=== PATIENT | male | born 1970 | race Caucasian/White ===

== ENCOUNTER → 2017-09-08 12:41 | Outpatient (CLI) | payer MEDICARE, SELFPAY | PROVIDERS: Family Provider Family Medicine; PCP Family Medicine; Visit Provider Family Medicine | DX: R19.7 Diarrhea, unspecified (principal) | CPT/HCPCS: 87177; 87209; 87493; 87506 ==

== ENCOUNTER → 2017-09-09 11:07 | Outpatient (CLI) | payer MEDICARE, SELFPAY ==
--- NOTE | 2017-09-09 11:30 | MRI_ITS ---
STUDY: MRI ABDOMEN WITH CONTRAST REASON FOR EXAM: Male, 47 years old. Liver lesion TECHNIQUE: Standardized fat and water weighted pulse sequences were obtained in all 3 orthogonal planes post contrast administration. 10 ml of Gadavist contrast material was administered intravenously. COMPARISON: CT dated 08/30/2017 FINDINGS: This study is limited by patient motion. The visualized lung bases are unremarkable. The visualized portions of the heart are within normal limits. There is diffuse fatty infiltration of the liver with a 2.2 x 2.0 cm region of focal fatty sparing in segment 5 of the liver adjacent to the gallbladder fossa. This corresponds to the abnormality on the recent CT. The liver is otherwise unremarkable. Normal gallbladder and extrahepatic biliary system. Normal spleen. Normal pancreas. Normal bilateral adrenal glands. Normal right kidney. Normal left kidney. The visualized bowel is unremarkable. Normal abdominal aorta. Normal inferior vena cava. MRI/MRI Abd WITH and W/O Contrast IMPRESSION: Diffuse fatty infiltration of the liver with a 2.2 x 2.0 cm region of focal fatty sparing adjacent to the gallbladder fossa. This accounts for the findings on the recent CT. No additional hepatic lesions. Electronically Signed: Peter Fischer, at 17:26 EDT Tel , Service support ,
== END ==
PROVIDERS: Family Provider Family Medicine; PCP Family Medicine; Visit Provider Family Medicine
DX: K76.9 Liver disease, unspecified (principal)
CPT/HCPCS: 74183; A9585

== ENCOUNTER → 2017-09-10 14:58 | Outpatient (CLI) | payer MEDICARE, SELFPAY ==
[2017-09-12 16:10] LABS: Endomysial Antibody IgA Negative (Negative)
[2017-09-13 11:20] LABS: Immunoglobulin A 234 mg/dL (90-386); t-Transglutaminase IgA <2 U/mL (0-3)
== END ==
PROVIDERS: Family Provider Family Medicine; PCP Family Medicine; Visit Provider Internal Medicine Gastroenterology
DX: R10.9 Unspecified abdominal pain (principal)
CPT/HCPCS: 36415; 82784; 83516; 86140; 86255

== ENCOUNTER → 2017-11-27 15:39 | Outpatient (CLI) | payer MEDICARE, SELFPAY ==
--- NOTE | 2017-11-27 15:45 | RAD_ITS ---
STUDY: X-RAY - LUMBAR SPINE REASON FOR EXAM: Male, 47 years old. Pain for 5 weeks after lifting a family member who fell. TECHNIQUE: 5 view(s) of the lumbar spine were obtained. COMPARISON: September 15, 2010. FINDINGS: Normal lumbar lordosis. There is no substantial scoliosis. Normal vertebral bodies and endplates. Normal disc space heights. There is minimal anterolisthesis of L5 on S1 which appears unchanged from prior study. The remainder the alignment is preserved. There is no evidence of acute fracture or loss of vertebral axial height. There are pars defects bilaterally at L5. The soft tissue structures are unremarkable. RAD/L/S Spine Min 4 Views IMPRESSION: Stable anterolisthesis of L5 on S1 with bilateral pars defects. There is no major interval change. Electronically Signed: Chai Tavera DO at 16:06 EDT Tel [phone], Service support ,
== END ==
LOC: MTRAD 15:43
PROVIDERS: Family Provider Family Medicine; PCP Family Medicine; Visit Provider Family Medicine
DX: S39.012A Strain of muscle, fascia and tendon of lower back, initial encounter (principal)
CPT/HCPCS: 72110

== ENCOUNTER → 2017-12-12 09:32 | Outpatient (CLI) | payer MEDICARE, SELFPAY ==
--- NOTE | 2017-12-12 09:38 | MRI_ITS ---
STUDY: MRI LUMBAR SPINE WITHOUT CONTRAST REASON FOR EXAM: Male, 47 years old. Radiculopathy. Pain into legs bilaterally. TECHNIQUE: Standardized fat and water weighted pulse sequences were obtained in the sagittal and axial planes. COMPARISON: Lumbar spine radiographs 11/27/2017. FINDINGS: T12-L1: (Sagittal only). Normal endplates. Normal disc height, hydration and morphology. Normal central canal and bilateral intervertebral neural foramina. Normal lumbar lordosis. There is no substantial scoliosis. Normal conus medullaris that terminates at the T12-L1 disc level. L1-2: Normal endplates. Minimal disc space height narrowing with mild loss of disc hydration. Small posterior bulging disc. Normal central canal and bilateral lateral recesses. Normal facet joints. Normal bilateral intervertebral neural foramina. L2-3: Normal endplates. Normal disc height, hydration and morphology. Normal bilateral facet joints. Normal central canal and bilateral lateral recesses. Normal bilateral intervertebral neural foramina. L3-4: Normal endplates. Normal disc height, hydration and morphology. Normal bilateral facet joints. Normal central canal and bilateral lateral recesses. Normal bilateral intervertebral neural foramina. L4-5: Normal endplates. Normal disc height, hydration and morphology. Normal bilateral facet joints. Normal central canal and bilateral lateral recesses. Normal bilateral intervertebral neural foramina. L5-S1: Normal endplates. Mild disc space height narrowing with marked loss of disc hydration. Small posterior midline disc protrusion but no deformity of the thecal sac due to presence of ventral epidural fat. Normal central canal and bilateral lateral recesses. Bilateral pars defects with minimal anterolisthesis of L5 on S1. Normal facet joints. Normal bilateral intervertebral neural foramina. Normal visualized sacral ala. Normal visualized paraspinous soft tissue structures. MRI/Spine Lumbar (Routine) IMPRESSION: 1. Bilateral L5 pars defects with minimal anterolisthesis of L5 on S1. 2. L5-S1 posterior midline disc protrusion but no deformity of the thecal sac due to presence of ventral epidural fat. 3. Small L1-L2 posterior bulging disc. 4. No MRI evidence of lumbar extruded disc fragment, spinal stenosis or nerve root displacement. Electronically Signed: Steven Mandel MD at 10:38 EDT , Service support ,
== END ==
LOC: MRI 09:33
PROVIDERS: Family Provider Family Medicine; PCP Family Medicine; Visit Provider Family Medicine
DX: M54.16 Radiculopathy, lumbar region (principal)
CPT/HCPCS: 72148

== ENCOUNTER 2018-01-01 15:00 | Outpatient (RCR) | payer MEDICARE, SELFPAY ==
--- NOTE | 2017-12-24 16:46 | HP.PTEVAL ---
Patient's Visit Information NEIL PHILLIP is a 47 year old M referred to Physical Therapy by Richard Cortes with a diagnosis of Back Pain. Date of Evaluation: 12/24/17 Physical Therapist: Mayte Jackson - Visit Plan Frequency: 2x /Week Duration: 4 Weeks Plan: Focus on core s/s and pain management- assess throughout session start slow check tolerance on land after 5-10 min. - Subjective Subjective: Patient reports back pain for abour 2-3 months- was taking care of grandmother- had to pick her up off the floor- hurt a little bit- had to do it again and has has pain since then. Patient reports the pain is about the same. Pain is located along the low back goes up to the thoracic spine- and every once in awhile it goes down left and right leg to the ankle. Only happens rarely when he moves wrong. Eases: recliner all the way back- pool noodle behind the back, legs elevated, muscle relaxer and Tylenol and can be pain free for about an hour. Considerable better pain anderson with a Vicoden and Flexeril. Feels like he has plateaud. Getting up and moving helps. Aggravating s/s: lifting anything with any kind of twisting. Sleep: disturbed- hard to get comfortable- but once he is asleep its better. Has N/T in his feet but doesn't know if its DM or the back. Describes the pain as shocking pains. 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 X-rays, CT Scan and MRI. No injections in his spine- has never seen a chiro/massage therapist. Diagnosed with IBS so no changes in bowel/bladder since then. Work: not currently working. Before back pain he was able to get up and do things (walking). PMHx: DM, PTSD, GERD, IBS, Asthma, Sarcodosis. Meds: will bring a list next time. - Objective Posture: FH, RS, Increased kyphosis- very guarded- stiff with no rotation- will use feet to turn to sides. Gait: antalgic- poor trunk rotation and arm swing- very guarded-. HR/TR: able with UE A. Balance: unable to SLS will weight shift (doesn't trust his legs to not give out). Sensation: grossly intact. Reflexes: WNL. ROM: lumbar: flexion-hands to mid bran with pain, extn: decreased by 75%, rotation: WFL but slow, SB: WFL- no pain with rotation/SB. Hip/ankle/knee: WNL. Strength: Left: ankle: 4/5, Knee: 4+/5, Hip: 4/5 Core: poor Right ankle-4+/5, knee: 5/5, hip: 4+/5. Special Test: Slump: negative, Dural signs: positive bilateral, SLR: positive bilateral. unable to obtain extension positioning on table due to pain - Goals Goal 1:: Patient will be I with HEP Goal Time Frame: 4-6 Weeks Goal 2:: Patient will ambulate >300 feet with a normalized gait pattern Goal Time Frame: 4-6 Weeks Goal 3:: Patient will maintain proper posture t/o tx session to demo increased core s/s Goal Time Frame: 4-6 Weeks Goal 4:: Patient will report 0/10 pain for 1 week Goal Time Frame: 4-6 Weeks - Rehabilitation Potential Physical Therapy Diagnosis: Patient presents with hypomobility- he has decreased ROM, strength and muscular endurance leading to poor posture and increased pain with ADL's. Rehabilitation Potential: Fair - Anticipated Interventions Patient/Client Instruction: Educate patient on: Benefits of Fitness Program Therapeutic Exercise to Include: Strength training, Endurance training, Balance training, Agility training, Body mechanics, Postural training, Flexibilty training, Gait and locomotor training, In an aquatic setting, Dynamic Lumbar Stabilization For the Purpose of:: To improve muscle performance and motor function Thank you for the opportunity to evaluate your patient. For Medicare and Medicare HMO plans, please review the plan of care and approve it. It will need to be FAXED BACK to us at [phone] for Medicare purposes. Please let me know if there are questions or concerns regarding this plan of care. Physician Signature: Date:
--- NOTE | 2018-02-16 16:31 | HP.PT.NRP ---
HP - Discharge Summary (1) - Patient Information NEIL PHILLIP was seen in my office for initial evaluation on 12/24/17. The following Plan of Care was established for this patient: Initial Frequency: 2x /Week Initial Duration: 4 Weeks - Anticipated Interventions Patient/Client Instruction: Educate patient on: Benefits of Fitness Program Therapeutic Exercise to Include: Strength training, Endurance training, Balance training, Agility training, Body mechanics, Postural training, Flexibilty training, Gait and locomotor training, In an aquatic setting, Dynamic Lumbar Stabilization For the Purpose of:: To improve muscle performance and motor function This patient was last seen in our office . Pertinent comments regarding their Physical therapy will appear below: Patient has not attended physical therapy in over 4 weeks and is appropriate for d/c. At this point I will be discontinuing this patient from physical therapy. I would be happy to see this patient again in the future if found appropriate by the physician. Thank you! Mayte Jackson
== END 2018-01-01 19:00 | disposition home or self-care (01) ==
LOC: PT 15:00
PROVIDERS: Family Provider Family Medicine; PCP Family Medicine; Visit Provider Family Medicine
DX: M54.9 Dorsalgia, unspecified (principal)
CPT/HCPCS: 97113; 97162

== ENCOUNTER 2018-03-04 19:09 | Emergency (ER) | payer MEDICARE, SELFPAY ==
[2018-03-04 19:10] VITALS: BP 126/80; PULSE 140; RESP 20; TEMP 36.4; O2SAT 98; BMI 33.9
[2018-03-04 19:52] LABS: Absolute Neutrophil Count 4.7 X10^3/uL (2.0-7.7); Basophil# 0.02 X10^3/uL; Basophil% 0.3 % (0-1); Eosinophil# 0.13 X10^3/uL; Eosinophils% 1.8 % (0-5); Hematocrit 42.1 % (40-54); Lymphocyte % 26.1 % (19-41); Mean Corp Hgb Conc 35.6 g/gl (32-36); Mean Corpuscular Hgb 29.5 pg (27.0-32.0); Mean Corpuscular Volume 82.9 fL (80-94); Mean Platelet Vol. 8.9 fl (6.2-12.0); Monocyte# 0.53 X10^3/uL; Monocyte% 7.3 % (0-10); Neutrophil % 64.4 % (47-70); Platelet Count 274 K/mm3 (150-450); RBC Distribution Width CV 12.6 % (11.6-14.6); RBC Distribution Width SD 37.7 fl (35.1-43.9); Red Blood Count 5.08 M/mm3 (4.6-6.2); White Blood Count 7.3 K/mm3 (4.4-11.0)
[2018-03-04 19:54] LABS: POSITIVE COUNT NO; POSITIVE DIFFERENTIAL NO; POSITIVE MORPHOLOGY NO
[2018-03-04 20:16] LABS: Anion Gap 8 (5-15); BUN 13 mg/dL (7-18); BUN/Creat Ratio 10.5 RATIO (10-20); Calcium,Total 9.2 mg/dL (8.5-10.1); Chloride 104 mmol/L (98-107); Creatinine, Serum 1.24 mg/dL (0.70-1.30); EST Glomerular Filtration Rate 67 mL/min (>60); Est Glom Filt Rate - Afr Amer 81 mL/min (>60); Glucose 120 mg/dL (74-106); Potassium 4.1 mmol/L (3.5-5.1); Sodium Level 136 mmol/L (136-145)
[2018-03-04] MEDS: Morphine 4 MG/ML Syringe IV (21:54)
[2018-03-04] MEDS: Metoclopramide 10 MG/2 ML Vial IV (21:54)
[2018-03-04] MEDS: 0.9% Normal Saline 1,000 ML 1000 ML IV (21:54)
[2018-03-04 21:55] VITALS: BP 146/94; PULSE 97; RESP 16
--- NOTE | 2018-03-04 22:10 | CT_ITS ---
STUDY: CT ABDOMEN AND PELVIS WITH CONTRAST REASON FOR EXAM: Male, 48 years old. Abdominal pain, nausea and vomiting. Patient also has diarrhea. RADIATION DOSAGE (If Supplied By Facility): CTDIvol = ( 23.72 ) mGy, DLP = ( 1449.16 ) mGycm TECHNIQUE: Transaxial images were obtained from the dome of the diaphragm to the symphysis pubis with oral contrast. 100 ml of Isovue 300 contrast was administered. Sagittal and coronal images were reconstructed. Individualized dose optimization techniques were used for this CT. COMPARISON: CT of the abdomen and pelvis dated August 30, 2017. FINDINGS: There is a curvilinear opacity in the right lower lobe that is similar to previous study and may represent a pulmonary fibrosis. Lung bases are otherwise clear. No pleural effusions are visualized. The visualized portions of the heart are within normal limits. There is decreased attenuation of the liver consistent with steatosis. Normal gallbladder and extrahepatic biliary system. Normal spleen. There is diffuse atrophy of the pancreas. Normal bilateral adrenal glands. Normal right kidney. Normal left kidney. Normal visualized stomach. There is no evidence for dilated bowel, ascites or pneumoperitoneum. Small bowel has a grossly normal appearance. Anterior contrast is visible within the colon. There is very little solid stool visible. The descending colon is less distended. The appendix is visualized and appears normal. Normal abdominal aorta. Normal inferior vena cava. Normal retroperitoneum. Normal urinary bladder. There are prostatic calcifications. There is a small umbilical hernia containing fat. There is spondylolysis of L5. There is mild anterolisthesis at L5-S1. The imaged thoracic and lumbar vertebral bodies have normal height and alignment. CT/Abdomen/Pelvis WITH Contrast IMPRESSION: 1. Hepatic steatosis. 2. No CT evidence of acute intra-abdominal disease. 3. Very little solid stool is consistent with history of diarrhea. Electronically Signed: Yessi Morrissey MD at 0:46 EDT , Service support ,
[2018-03-04 22:33] LABS: Lactic Acid 1.4 mmol/L (0.4-2.0)
[2018-03-04 23:17] LABS: AST(SGOT) 22 U/L (15-37); Alanine Aminotransfer ALT/SGPT 47 U/L (16-61); Albumin, Serum 3.9 g/dL (3.2-5.0); Alkaline Phosphatase 75 U/L (45-117); Globulin 3.5 g/dL (2.2-4.2); Lipase 66 U/L (73-393); Protein, Total 7.4 g/dL (6.4-8.2)
--- NOTE | 2018-03-04 23:59 | ED.VISSUMM ---
- ER Visit Summary Date of Service: 03/04/18 Chief Complaint: [Abdominal pain] History of Present Illness: The patient is a 48 M [presents the emergency department with complaint of abdominal pain that he has had for over 2 weeks. Patient states that he has nausea and vomiting and really cannot eat very much as he has early satiety. Patient has had minimal food intake in the last 4 days. He believes his lost weight but cannot tell me how much. Patient also having diarrhea and thinks he had about 10 episodes today. Stools are watery. He denies any blood in his stool. He denies any blood in his vomitus. He has had no fevers. He denies recent travel or antibiotic usage. Patient does have a history of GERD and was diagnosed with irritable bowel syndrome [address] Moore however as he states that he cannot afford his medication prescribed. Patient also has known history of hiatal hernia.] Physical Examination: [HEENT-PERRLA, EOMI. Cranial nerves II through XII grossly intact. TMs clear. Mucous membranes moist. No adenopathy. Cardiovascular-regular and tachycardic with a heart rate in the 140s. No murmurs auscultated. Lungs-clear to auscultation, chest wall stable without crepitus or subcu emphysema Abdomen-normoactive bowel sounds, soft. Patient has diffuse tenderness palpation over the epigastric region with some guarding. There is no rebound, rigidity, or perineal signs. Extremities-intact ?4, normal range of motion, normal pulses, atraumatic] Test Results: [CBC with differential obtained showed a white count 7.3, hemoglobin 15, hematocrit 42, platelets 274. Chemistries unremarkable. LFTs unremarkable. Lipase was 66. Troponin was less than 0.015. CT scan of the abdomen pelvis pending. Stool was ordered for enteric pathogens.] Emergency Department Course and Treatment: [Patient was given a liter normal same fluid bolus and was medicated with morphine and Reglan.] Care of patient turned over to evening physician awaiting CT results and final disposition that includes dictation thank Treatment Plan: [Pending CT results and final disposition] Disposition: [Pending] Impression: [Abdominal pain] This note was generated with [employer] software. It may contain incorrect words, spelling, and punctuation that were not noted in review of the chart prior to signing ED Disposition - Plan for ED Patient: Chief Complaint: Abd Pain Referrals: Richard Cortes MD [Primary Care Provider] -
--- NOTE | 2018-03-05 00:07 | ED.DEP ---
ED Disposition - Plan for ED Patient: Chief Complaint: Abd Pain Instructions: ED Abdominal Pain Unkn Cause Prescriptions: Metoclopramide [Reglan] 10 mg PO 4X/DAY PRN #20 tab PRN Reason: Headache Referrals: Richard Cortes MD [Primary Care Provider] - Additional Instructions: See Dr. Moore for follow up in 3-5 days
--- NOTE | 2018-03-05 02:29 | ED.RN ---
SEE DOWNTIME PAPERWORK FOR D/C DOCUMENTATION
== END 2018-03-05 01:55 | disposition home or self-care (01) ==
LOC: ED 21:37
PROVIDERS: Emergency Provider Emergency Medicine; Family Provider Family Medicine; PCP Family Medicine
DX: R10.10 Upper abdominal pain, unspecified (principal); R11.2 Nausea with vomiting, unspecified; R68.81 Early satiety; K21.9 Gastro-esophageal reflux disease without esophagitis; K44.9 Diaphragmatic hernia without obstruction or gangrene; K58.0 Irritable bowel syndrome with diarrhea; E11.9 Type 2 diabetes mellitus without complications; Z79.899 Other long term (current) drug therapy; J45.909 Unspecified asthma, uncomplicated
CPT/HCPCS: 74177; 80048; 80076; 83605; 83690; 84484; 85025; 96361; 96374; 96375; 99282; J7030; Q9967; A4216

== ENCOUNTER → 2018-05-07 16:25 | Outpatient (CLI) | payer MEDICARE, SELFPAY ==
--- NOTE | 2018-05-07 | IMM_PTH ---
PATIENT: NEIL PHILLIP LOC: [facility] U#:[id number] AGE/SX: 55/M ROOM: RE05/07/[address]: Dr. Eran Moore MD : 1970 BED: DIS: SPEC #: [id number] RECD: 05/11/18 11:26 STATUS: SCOTTY REQ #: [id number] PRINCESS: 05/07/18 00:[address]: Eran Moore DEPT: IMMUNOHISTOCHEMISTRY RECD BY: Helen Manuel ENTERED: 05/11/18 11:26 SP TYPE: IMMUNO OTHR DR: Dr. Richard Cortes MD Tissues: Stomach, NOS Procedures: H Pylori (initial) PHYSICIAN & INSTITUTION [place] [id number] SPECIMEN INFORMATION: Tissue Source: Gastric biopsy Clinical Info: Nausea/gastroparalysis Specimen Number: [id number] CPT code: 34323 METHODOLOGY: Deparaffinized sections of prefer/formalin-fixed tissue or PAP/DQ stained slides are incubated with monoclonal/polyclonal antibodies/oligonucleotide probes. Localization is made via biotin free immunoperoxidase method. Appropriate controls are performed and reacted as expected. Results on target cell population are indicated in the following table: RESULTS: ANTIBODY / CLONE RESULT H Pylori (polyclonal) negative These tests were developed and their performance characteristics determined by [facility]. They may not have been cleared or approved by the [place]. Food and Drug Administration. The FDA has determined that such clearance or approval is not necessary. INTERPRETATION: Gastric biopsy: Negative for Helicobacter pylori organisms. SJ:clary 05/12/18
--- NOTE | 2018-05-07 07:56 | EGD_PTH ---
PATIENT: NEIL PHILLIP LOC: [facility] U#:[id number] AGE/SX: 55/M ROOM: RE05/07/[address]: Dr. Eran Moore MD : 1970 BED: DIS: SPEC #: [id number] RECD: 05/07/18 16:22 STATUS: SCOTTY KAREN #: [id number] PRINCESS: 05/07/18 07:[address]: Eran Moore DEPT: SURGICAL PATHOLOGY RECD BY: Eduardo Calvert ENTERED: 05/08/18 10:17 SP TYPE: EGD BIOPSY OTHR DR: Dr. Richard Cortes MD [facility] Tissues: Gastric mucous membrane Procedures: Surgery Specimen Level IV HEADER OPERATION: EGD with biopsies PRE-OP DIAGNOSIS: Nausea/gastroparalysis TISSUE SUBMITTED: Gastric biopsies, rule out gastritis MICROSCOPIC DIAGNOSIS Gastric biopsy: Mild gastritis. See microscopic description and comment. SJ:clary 05/11/18 COMMENT The results of immunohistochemistry for Helicobacter pylori will be reported separately ([id number]). MICROSCOPIC DESCRIPTION Slides are reviewed. The specimen shows fragments of gastric mucosa with chronic inflammatory cell infiltrates in the lamina propria consisting of lymphocytes and plasma cells, consistent with mild chronic gastritis. GROSS DESCRIPTION Received in fixative is one container labeled with the patient's name and designated gastric biopsy. The specimen consists of two irregular fragments of light santizo soft tissue that in aggregate measure 0.5 x 0.3 x 0.1 cm. The specimen is totally submitted in one cassette. / SJ:clary 05/08/18 TC:3 CPT: 75691
--- OUTSIDE RECORDS SUMMARY | 2018-06-23 21:17 | XMS RPT_ITS ---
:1970 Author Organization OH[facility] Care Team Providers Name Role Phone Richard Cortes Attending Unavailable Richard Cortes Referring Unavailable Richard Cortes Primary Care Unavailable Richard Cortes Attending Unavailable Richard Cortes Referring Unavailable Richard Cortes Primary Care Unavailable Eran Moore Attending Unavailable Richard Cortes Primary Care Unavailable Rodney Morrissey Attending Unavailable Rodney Morrissey Referring Unavailable Richard Cortes Primary Care Unavailable Richard Cortes Attending Unavailable Richard Cortes Referring Unavailable Richard Cortes Primary Care Unavailable Richard Cortes Attending Unavailable Richard Cortes Referring Unavailable Richard Cortes Primary Care Unavailable Richard Cortes Primary Care Unavailable Rod Valenzuela Attending Unavailable Eran Moore Attending Unavailable Eran Moore Referring Unavailable Richard Cortes Primary Care Unavailable VAMSI AGUIRRE, DR. BLOCK Attending Unavailable KAREN GLYNN, LOYDA Primary Care Unavailable PROBLEMS PROBLEMS DATE TYPE CONDITION / CODE ATTENDING STATUS SOURCE 02/17/2018 Unknown M54.9 - Richard Cortes Active [place] Dorsalgia, Community unspecified / Hospital M54.9(ICD-10) Repository 11/27/2017 Unknown S39.012A - Rodney Moreno Active [facility] of muscle, fascia Community and tendon of Hospital lower back, Repository initial encounter / S39.012A(ICD-10) 01/15/2018 Unknown R10.9 - Eran Moore Active [place] Unspecified Community abdominal pain / Hospital R10.9(ICD-10) Repository 01/15/2018 Unknown K76.9 - Liver Richard Cortes Active [facility] disease, Community unspecified / Hospital K76.9(ICD-10) Repository 01/15/2018 Unknown R19.7 - Diarrhea, Richard Cortes Active [place] unspecified / Community R19.7(ICD-10) Hospital Repository PROCEDURES PROCEDURES No Procedure Records FoundRESULTS RESULTS EGD ([facility] SITE) Observed: 05/07/2018 Status: F Source: [place] 7:56 AM [facility] REPOSITORY Patient: NEIL PHILLIP : 1970 (48/M) Acct Num: [id number] Phys: VamsiEran Unit Num: [id number] Loc: LABSPEC Specimen: [id number] Received: 05/07/18 - 1425 Spec Type: EGD BIOPSY TISSUES 1 TISSUES: Gastric mucous membrane COMMENT The results of immunohistochemistry for Helicobacter pylori will be reported separately ([id number]). GROSS DESCRIPTION Received in fixative is one container labeled with the patient's name and designated gastric biopsy. The specimen consists of two irregular fragments of light santizo soft tissue that in aggregate measure 0.5 x 0.3 x 0.1 cm. The specimen is totally submitted in one cassette. / YONI:calry 05/08/18 TC:3 CPT: 94586 HEADER OPERATION: EGD with biopsies PRE-OP DIAGNOSIS: Nausea/gastroparalysis TISSUE SUBMITTED: Gastric biopsies, rule out gastritis MICROSCOPIC DESCRIPTION Slides are reviewed. The specimen shows fragments of gastric mucosa with chronic inflammatory cell infiltrates in the lamina propria consisting of lymphocytes and plasma cells, consistent with mild chronic gastritis. MICROSCOPIC DIAGNOSIS Gastric biopsy: Mild gastritis. See microscopic description and comment. SJ:clary 05/11/18 Signed Sonu Foley 05/11/18 <signature on file> Performed By: #### PEGD #### [facility] [address] [place], [place] [address]manoj[place], [address] IMMUNOHISTOCHEMISTRY Observed: 05/07/2018 Status: F Source: [place] 12:00 AM [facility] REPOSITORY Patient: NEIL PHILLIP : 1970 (48/M) Acct Num: [id number] Phys: Eran Moore Unit Num: [id number] Loc: LABSPEC Specimen: [id number] Received: 05/11/181125 Spec Type: IMMUNO TISSUES 1 TISSUES: Stomach, NOS SPECIMEN INFORMATION: Tissue Source: Gastric biopsy Clinical Info: Nausea/gastroparalysis Specimen Number: [id number] CPT code: 80235 METHODOLOGY: Deparaffinized sections of prefer/formalin-fixed tissue or PAP/DQ stained slides are incubated with monoclonal/polyclonal antibodies/oligonucleotide probes. Localization is made via biotin free immunoperoxidase method. Appropriate controls are performed and reacted as expected. Results on target cell population are indicated in the following table: RESULTS: ANTIBODY / CLONE RESULT H Pylori (polyclonal) negative These tests were developed and their performance characteristics determined by [facility]. They may not have been cleared or approved by the U.S. Food and Drug Administration. The FDA has determined that such clearance or approval is not necessary. INTERPRETATION: Gastric biopsy: Negative for Helicobacter pylori organisms. SJ:clary 05/12/18 PHYSICIAN AND INSTITUTION [address] [address] Signed Sonu Foley MD 05/12/18 <signature on file> Performed By: #### PIMM #### [facility] [address] [place], [address] NM GASTRIC EMPTYING Observed: 04/27/2018 Status: F Source: [facility] 11:00 AM [facility] EMERGENCY DEPARTMENT REPOSITORY ORIGINAL NM GASTRIC EMPTYING STUDY Clinical Statement: NAUSEA, VOMITING, WEIGHT LOSS Technique: Radiopharmaceutical: Tc-99m Sulfur Colloid po Dose: 2.1mCi Tc-99m sulfur colloid in a 3 egg beaters and 2 slices of bread Anterior and posterior images of the stomach for 2 hours Calculate geometric mean of anterior and posterior images Calculate T 1/2 for gastric emptying Comparison: None Report: There is normal gastric emptying of solid food. The T1/2 is 59.2 minutes. The upper limit of normal for our laboratory is 120 minutes. Impression: Normal gastric emptying of solid food. The TI/2 is 59.2 minutes. I have personally reviewed the images of this examination and agree with the resident's findings and interpretation. Interpreted By: Jayson Gu MD Preliminary Report By: Dung Arndt MD Electronically Signed By: Jayson Gu MD Dictated Date: 04/27/2018 1:25:38 PM Prelim Date: 04/27/2018 1:28:52 PM Sign Date: 04/27/2018 2:50:47 PM DISCHARGE INSTRUCTION Observed: 03/05/2018 Status: F Source: [place] 12:09 AM [facility] REPOSITORY [facility] Medical Records Department [address] [place] [address] Discharge Instruction 03/05/18 0007 MR#: [id number] Acct: [id number] Name: PHILLIPNEIL Rep #: [id number] : 1970 48 From: Rod Valenzuela DO PCP: Richard Cortes MD Status: REG ER ED Disposition - Plan for ED Patient: Chief Complaint: Abd Pain Instructions: ED Abdominal Pain Unkn Cause Prescriptions: Metoclopramide [Reglan] 10 mg PO 4X/DAY PRN #20 tab PRN Reason: Headache Referrals: Richard Cortes MD [Primary Care Provider] - Additional Instructions: See Dr. Moore for follow up in 3-5 days What to do if you have Problems For any increased pain, shortness of breath, bleeding, nausea or vomiting, chest pain, or any unexpected problems, contact your Primary Care Provider. Call [facility] ([phone]) or report to the closest Emergency Room. Call 911 if necessary. 03/05/18 0009 <Electronically signed by Rod Valenzuela DO> Date Rod Valenzuela DO Cosigner Signature (If Indicated): Date CC: Richard Crotes MD EMERGENCY DEPARTMENT Observed: 03/05/2018 Status: F Source: [place] SUMMARY 12:03 AM [facility] REPOSITORY [facility] Medical Records Department [address] [place] [address] Emergency Department Summary 03/04/18 2359 MR#: [id number] Acct: [id number] Name: PHILLIPNEIL Rep #: [id number] : 1970 48 From: Rod Valenzuela DO PCP: Richard Cortes MD Status: REG ER - ER Visit Summary Date of Service: 03/04/18 Chief Complaint: [Abdominal pain] History of Present Illness: The patient is a 48 M [presents the emergency department with complaint of abdominal pain that he has had for over 2 weeks. Patient states that he has nausea and vomiting and really cannot eat very much as he has early satiety. Patient has had minimal food intake in the last 4 days. He believes his lost weight but cannot tell me how much. Patient also having diarrhea and thinks he had about 10 episodes today. Stools are watery. He denies any blood in his stool. He denies any blood in his vomitus. He has had no fevers. He denies recent travel or antibiotic usage. Patient does have a history of GERD and was diagnosed with irritable bowel syndrome [address] Moore however as he states that he cannot afford his medication prescribed. Patient also has known history of hiatal hernia.] Physical Examination: [HEENT-PERRLA, EOMI. Cranial nerves II through XII grossly intact. TMs clear. Mucous membranes moist. No adenopathy. Cardiovascular-regular and tachycardic with a heart rate in the 140s. No murmurs auscultated. Lungs-clear to auscultation, chest wall stable without crepitus or subcu emphysema Abdomen-normoactive bowel sounds, soft. Patient has diffuse tenderness palpation over the epigastric region with some guarding. There is no rebound, rigidity, or perineal signs. Extremities-intact 4, normal range of motion, normal pulses, atraumatic] Test Results: [CBC with differential obtained showed a white count 7.3, hemoglobin 15, hematocrit 42, platelets 274. Chemistries unremarkable. LFTs unremarkable. Lipase was 66. Troponin was less than 0.015. CT scan of the abdomen pelvis pending. Stool was ordered for enteric pathogens.] Emergency Department Course and Treatment: [Patient was given a liter normal same fluid bolus and was medicated with morphine and Reglan.] Care of patient turned over to evening physician awaiting CT results and final disposition that includes dictation thank Treatment Plan: [Pending CT results and final disposition] Disposition: [Pending] Impression: [Abdominal pain] This note was generated with Hello[employer] dictation software. It may contain incorrect words, spelling, and punctuation that were not noted in review of the chart prior to signing ED Disposition - Plan for ED Patient: Chief Complaint: Abd Pain Referrals: Richard Cortes MD [Primary Care Provider] - What to do if you have Problems For any increased pain, shortness of breath, bleeding, nausea or vomiting, chest pain, or any unexpected problems, contact your Primary Care Provider. Call [facility] ([phone]) or report to the closest Emergency Room. Call 911 if necessary. 03/05/18 0003 <Electronically signed by Rod Valenzuela DO> Date Rod Valenzuela DO Cosigner Signature (If Indicated): Date CC: Richard Cortes MD LIVER PROFILE Collected: 03/04/2018 Status: F Source: [place] 10:44 PM [facility] REPOSITORY TYPE CODE TESTS RESULT OUT OF RANGE REFERENCE UNITS LAB L501.1500 6.4-8.2 g/dL Normal T PROT 7.4 LAB L501.1800 3.2-5.0 g/dL Normal ALB 3.9 LAB L501.1950 2.2-4.2 g/dL Normal GLOB 3.5 LAB L501.4100 15-37 U/L Normal AST 22 LAB L501.4305 45-117 U/L Normal ALK P 75 LAB L501.4405 16-61 U/L Normal ALT 47 LAB L501.4600 0.20-1.00 mg/dL Normal T BILI 0.20 LAB L501.4700 0.00-0.30 mg/dL Normal D BILI 0.10 Performed By: #### L500.3400, L501.2450 #### [facility] [address] [place], [address] LIPASE Collected: 03/04/2018 Status: F Source: [place] 10:44 PM [facility] REPOSITORY TYPE CODE TESTS RESULT OUT OF REFERENCE UNITS RANGE LAB L501.2450 73-393 U/L Low LIPASE 66 Performed By: #### L500.3400, L501.2450 #### [facility] [address] [place], [address] ABDOMEN/PELVIS WITH Observed: 03/04/2018 Status: F Source: [place] CONTRAST 10:10 PM [facility] REPOSITORY [facility] Imaging Services [address] [place] [address] Abdomen/Pelvis WITH Contrast MR#: [id number] Acct: [id number] Name: NEIL PHILLIP Rep #: [id number] : 1970 M 48 From: Yessi Morrissey MD PCP: Richard Cortes MD Status: DEP ER Study: Abdomen/Pelvis WITH Contrast Date of Exam: 03/04/18 Exam# [id number] Ordering Dr: Rod Valenzuela DO STUDY: CT ABDOMEN AND PELVIS WITH CONTRAST REASON FOR EXAM: Male, 48 years old. Abdominal pain, nausea and vomiting. Patient also has diarrhea. RADIATION DOSAGE (If Supplied By Facility): CTDIvol = ( 23.72 ) mGy, DLP = ( 1449.16 ) mGycm TECHNIQUE: Transaxial images were obtained from the dome of the diaphragm to the symphysis pubis with oral contrast. 100 ml of Isovue 300 contrast was administered. Sagittal and coronal images were reconstructed. Individualized dose optimization techniques were used for this CT. COMPARISON: CT of the abdomen and pelvis dated August 30, 2017. FINDINGS: There is a curvilinear opacity in the right lower lobe that is similar to previous study and may represent a pulmonary fibrosis. Lung bases are otherwise clear. No pleural effusions are visualized. The visualized portions of the heart are within normal limits. There is decreased attenuation of the liver consistent with steatosis. Normal gallbladder and extrahepatic biliary system. Normal spleen. There is diffuse atrophy of the pancreas. Normal bilateral adrenal glands. Normal right kidney. Normal left kidney. Normal visualized stomach. There is no evidence for dilated bowel, ascites or pneumoperitoneum. Small bowel has a grossly normal appearance. Anterior contrast is visible within the colon. There is very little solid stool visible. The descending colon is less distended. The appendix is visualized and appears normal. Normal abdominal aorta. Normal inferior vena cava. Normal retroperitoneum. Normal urinary bladder. There are prostatic calcifications. There is a small umbilical hernia containing fat. There is spondylolysis of L5. There is mild anterolisthesis at L5-S1. The imaged thoracic and lumbar vertebral bodies have normal height and alignment. CT/Abdomen/Pelvis WITH Contrast IMPRESSION: 1. Hepatic steatosis. 2. No CT evidence of acute intra-abdominal disease. 3. Very little solid stool is consistent with history of diarrhea. Electronically Signed: Yessi Morrissey MD at 0:46 EDT , Service support , CC: Richard Cortes MD; Rod Valenzuela DO Body Fitter: Signed LACTIC ACID Collected: 03/04/2018 Status: F Source: [place] 9:55 PM [facility] REPOSITORY Order Comment: Yes/No query for Sepsis Lactate Rule Y TYPE CODE TESTS RESULT OUT OF RANGE REFERENCE UNITS LAB L503.6005 0.4-2.0 mmol/L Normal LACTIC ACID 1.4 Performed By: #### L503.6005 #### [facility] [place], [address] CBC W/DIFF, AUTOMATED Collected: 03/04/2018 Status: F Source: [place] 7:30 PM [facility] REPOSITORY TYPE CODE TESTS RESULT OUT OF RANGE REFERENCE UNITS LAB L100.1000 4.4-11.0 K/mm3 Normal WBC 7.3 LAB L100.1200 4.6-6.2 M/mm3 Normal RBC 5.08 LAB L100.1300 13.0-16.5 g/dl Normal HGB 15.0 LAB L100.1400 40-54 % Normal HCT 42.1 LAB L100.1500 80-94 fL Normal MCV 82.9 LAB L100.1600 27.0-32.0 pg Normal MCH 29.5 LAB L100.1700 32-36 g/gl Normal MCHC 35.6 LAB L100.1810 11.6-14.6 % Normal RDW CV 12.6 LAB L100.1820 35.1-43.9 fl Normal RDW SD 37.7 LAB L100.1900 150-450 K/mm3 Normal PLT 274 LAB L100.2000 6.2-12.0 fl Normal MPV 8.9 LAB L100.2100 47-70 % Normal NEUT% 64.4 LAB L100.2200 19-41 % Normal LY% 26.1 LAB L100.2300 0-10 % Normal MONO% 7.3 LAB L100.2400 0-5 % Normal EO% 1.8 LAB L100.2500 0-1 % Normal BASO% 0.3 LAB L100.2550 0.0-0.9 % Normal IM GRAN % 0.100 Result Comment: IG% - Immature Granulocytes (promyelocytes, myelocytes and metamyelocytes) > 1% indicates that a LEFT SHIFT is Present. LAB L100.2620 2.0-7.7 X10 3/uL Normal Absolute Neut 4.7 LAB L100.2720 0.83-4.51 X10 3/ul Normal Absolute Lymph 1.90 Performed By: #### L100.0100 #### [facility] [address] [facility] [address] [place], [place], [address] BASIC METABOLIC Collected: 03/04/2018 Status: F Source: [place] PROFILE (BMP) 7:30 PM [facility] REPOSITORY TYPE CODE TESTS RESULT OUT OF RANGE REFERENCE UNITS LAB L501.0100 74-106 mg/dL High GLU 120 Result Comment: Fasting Glucose result from 100 to 125 mg/dL suggests IMPAIRED HOMEOSTASIS per A.D.A. criteria. Please note revised GLUCOSE reference range effective 2017. LAB L501.1000 7-18 mg/dL Normal BUN 13 LAB L501.1100 0.70-1.30 mg/dL Normal CREAT,SERUM 1.24 Result Comment: The validity of the calculated GFR AND GFRAA in patients over 70 years has not been determined. Clinical correlation is essential. LAB L501.1110 >60 mL/min Normal EST GFR 67 Result Comment: Non- GFR Calc LAB L501.1115 >60 mL/min Normal EST GFR - AA 81 Result Comment: GFR Calc LAB L501.1255 ml/min Normal Estimated CRCL 81.70 LAB L501.1300 10-20 RATIO Normal BUN/CRE 10.5 LAB L501.2200 8.5-10 mg/dL Normal .1 CA 9.2 LAB L501.5300 136-14 mmol/L Normal 5 NA 136 LAB L501.5600 3.5-5. mmol/L Normal 1 K 4.1 LAB L501.5900 98-107 mmol/L Normal CL 104 LAB L501.6100 21.0-3 mmol/L Normal 2.0 CO2 24.0 LAB L501.6200 5-15 Normal GAP 8 Performed By: #### L500.2500, L501.4010 #### [facility] [address] [place], [place], [address] TROPONIN-I Collected: 03/04/2018 Status: F Source: [place] 7:30 PM [facility] REPOSITORY TYPE CODE TESTS RESULT OUT OF RANGE REFERENCE UNITS LAB L501.4010 <0.045 ng/mL Normal < 0.015 TROPONIN-I Result Comment: TROPONIN-I EXPECTED VALUES <0.045 Negative 0.045 - 0.590 Consistent with Cardiac Damage > OR = 0.600 Critical Value Not every elevated troponin is indicative of FL. These values should be used with clinical judgement in examining the patient's clinical picture for diagnosis. To establish a diagnosis of FL versus myocardial injury, there must be a demonstrated rise and/or fall in the troponin values, in addition to ischemic symptoms, EKG changes, new regional wall motion abnormality, and/or angiographical evidence. PLEASE NOTE: REFERENCE RANGES EDITED 17 Performed By: #### L500.2500, L501.4010 #### [facility] [address] [place], [place], [address] INITAL EVALUATION (1) Observed: 12/24/2017 Status: F Source: [place] - PT 4:47 PM [facility] REPOSITORY [facility] [facility] [place], [place] [address] Fax REHABILITATION SERVICES INITIAL EVALUATION MR#: [id number] Acct: [id number] Name: NEIL PHILLIP Rep #: [id number] : 1970 47 From: Mayet Jackson DPT Referring Dr.: Richard Cortes MD Status: REG RCR Insurance: MEDICARE PART A B SELF PAY INSURANCE Patient's Visit Information NEIL PHILLIP is a 47 year old M referred to Physical Therapy by Richard Cortes with a diagnosis of Back Pain. Date of Evaluation: 12/24/17 Physical Therapist: Mayte Jackson - Visit Plan Frequency: 2x /Week Duration: 4 Weeks Plan: Focus on core s/s and pain management- assess throughout session start slow check tolerance on land after 5-10 min. - Subjective Subjective: Patient reports back pain for abour 2-3 months- was taking care of grandmother- had to pick her up off the floor- hurt a little bit- had to do it again and has has pain since then. Patient reports the pain is about the same. Pain is located along the low back goes up to the thoracic spine- and every once in awhile it goes down left and right leg to the ankle. Only happens rarely when he moves wrong. Eases: recliner all the way back- pool noodle behind the back, legs elevated, muscle relaxer and Tylenol and can be pain free for about an hour. Considerable better pain anderson with a Vicoden and Flexeril. Feels like he has plateaud. Getting up and moving helps. Aggravating s/s: lifting anything with any kind of twisting. Sleep: disturbed- hard to get comfortable- but once he is asleep its better. Has N/T in his feet but doesn't know if its DM or the back. Describes the pain as shocking pains. 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 X-rays, CT Scan and MRI. No injections in his spine- has never seen a chiro/massage therapist. Diagnosed with IBS so no changes in bowel/bladder since then. Work: not currently working. Before back pain he was able to get up and do things (walking). PMHx: DM, PTSD, GERD, IBS, Asthma, Sarcodosis. Meds: will bring a list next time. - Objective Posture: FH, RS, Increased kyphosis- very guarded- stiff with no rotation- will use feet to turn to sides. Gait: antalgic- poor trunk rotation and arm swing- very guarded-. HR/TR: able with UE A. Balance: unable to SLS will weight shift (doesn't trust his legs to not give out). Sensation: grossly intact. Reflexes: WNL. ROM: lumbar: flexion- hands to mid bran with pain, extn: decreased by 75%, rotation: WFL but slow, SB: WFL- no pain with rotation/SB. Hip/ankle/knee: WNL. Strength: Left: ankle: 4/5, Knee: 4+/5, Hip: 4/5 Core: poor Right ankle-4+/5, knee: 5/5, hip: 4+/5. Special Test: Slump: negative, Dural signs: positive bilateral, SLR: positive bilateral. unable to obtain extension positioning on table due to pain - Goals Goal 1:: Patient will be I with HEP Goal Time Frame: 4-6 Weeks Goal 2:: Patient will ambulate >300 feet with a normalized gait pattern Goal Time Frame: 4-6 Weeks Goal 3:: Patient will maintain proper posture t/o tx session to demo increased core s/s Goal Time Frame: 4-6 Weeks Goal 4:: Patient will report 0/10 pain for 1 week Goal Time Frame: 4-6 Weeks - Rehabilitation Potential Physical Therapy Diagnosis: Patient presents with hypomobility- he has decreased ROM, strength and muscular endurance leading to poor posture and increased pain with ADL's. Rehabilitation Potential: Fair - Anticipated Interventions Patient/Client Instruction: Educate patient on: Benefits of Fitness Program Therapeutic Exercise to Include: Strength training, Endurance training, Balance training, Agility training, Body mechanics, Postural training, Flexibilty training, Gait and locomotor training, In an aquatic setting, Dynamic Lumbar Stabilization For the Purpose of:: To improve muscle performance and motor function Thank you for the opportunity to evaluate your patient. For Medicare and Medicare HMO plans, please review the plan of care and approve it. It will need to be FAXED BACK to us at [phone] for Medicare purposes. Please let me know if there are questions or concerns regarding this plan of care. Physician Signature: Date: <Electronically signed by Mayte Jackson DPT> 12/24/17 1647 CC: Richard Cortes MD ELR Signed For Medicare only, by signing this I certify the plan of care. Physicians Signature Date SPINE LUMBAR Observed: 12/12/2017 Status: F Source: [place] (ROUTINE) 9:38 AM [facility] REPOSITORY [facility] Imaging Services [address] [place] [address] Spine Lumbar (Routine) MR#: [id number] Acct: [id number] Name: NEIL PHILLIP J Rep #: [id number] : 1970 M 47 From: Steven Mandel MD PCP: Richard Cortes MD Status: REG CLI Study: Spine Lumbar (Routine) Date of Exam: 12/12/17 Exam# [id number] Ordering Dr: Richard Cortes MD STUDY: MRI LUMBAR SPINE WITHOUT CONTRAST REASON FOR EXAM: Male, 47 years old. Radiculopathy. Pain into legs bilaterally. TECHNIQUE: Standardized fat and water weighted pulse sequences were obtained in the sagittal and axial planes. COMPARISON: Lumbar spine radiographs 11/27/2017. FINDINGS: T12-L1: (Sagittal only). Normal endplates. Normal disc height, hydration and morphology. Normal central canal and bilateral intervertebral neural foramina. Normal lumbar lordosis. There is no substantial scoliosis. Normal conus medullaris that terminates at the T12-L1 disc level. L1-2: Normal endplates. Minimal disc space height narrowing with mild loss of disc hydration. Small posterior bulging disc. Normal central canal and bilateral lateral recesses. Normal facet joints. Normal bilateral intervertebral neural foramina. L2-3: Normal endplates. Normal disc height, hydration and morphology. Normal bilateral facet joints. Normal central canal and bilateral lateral recesses. Normal bilateral intervertebral neural foramina. L3-4: Normal endplates. Normal disc height, hydration and morphology. Normal bilateral facet joints. Normal central canal and bilateral lateral recesses. Normal bilateral intervertebral neural foramina. L4-5: Normal endplates. Normal disc height, hydration and morphology. Normal bilateral facet joints. Normal central canal and bilateral lateral recesses. Normal bilateral intervertebral neural foramina. L5-S1: Normal endplates. Mild disc space height narrowing with marked loss of disc hydration. Small posterior midline disc protrusion but no deformity of the thecal sac due to presence of ventral epidural fat. Normal central canal and bilateral lateral recesses. Bilateral pars defects with minimal anterolisthesis of L5 on S1. Normal facet joints. Normal bilateral intervertebral neural foramina. Normal visualized sacral ala. Normal visualized paraspinous soft tissue structures. MRI/Spine Lumbar (Routine) IMPRESSION: 1. Bilateral L5 pars defects with minimal anterolisthesis of L5 on S1. 2. L5-S1 posterior midline disc protrusion but no deformity of the thecal sac due to presence of ventral epidural fat. 3. Small L1-L2 posterior bulging disc. 4. No MRI evidence of lumbar extruded disc fragment, spinal stenosis or nerve root displacement. Electronically Signed: Steven Mandel MD at 10:38 EDT , Service support , CC: Richard Cortes MD Body Fitter: Signed L/S SPINE MIN 4 Observed: 11/27/2017 Status: F Source: [place] VIEWS 3:46 PM [facility] REPOSITORY [facility] Imaging Services [address] [place] [address] L/S Spine Min 4 Views MR#: [id number] Acct: [id number] Name: NEIL PHILLIP Rep #: [id number] : 1970 M 47 From: Chai Tavera DO PCP: Richard Cortes MD Status: REG CLI Study: L/S Spine Min 4 Views Date of Exam: 11/27/17 Exam# [id number] Ordering Dr: Rodney Morrissey MD STUDY: X-RAY - LUMBAR SPINE REASON FOR EXAM: Male, 47 years old. Pain for 5 weeks after lifting a family member who fell. TECHNIQUE: 5 view(s) of the lumbar spine were obtained. COMPARISON: September 15, 2010. FINDINGS: Normal lumbar lordosis. There is no substantial scoliosis. Normal vertebral bodies and endplates. Normal disc space heights. There is minimal anterolisthesis of L5 on S1 which appears unchanged from prior study. The remainder the alignment is preserved. There is no evidence of acute fracture or loss of vertebral axial height. There are pars defects bilaterally at L5. The soft tissue structures are unremarkable. RAD/L/S Spine Min 4 Views IMPRESSION: Stable anterolisthesis of L5 on S1 with bilateral pars defects. There is no major interval change. Electronically Signed: Chai TaveraDO at 16:06 EDT Tel [phone], Service support , CC: Rodney Morrissey MD; Richard Cortes MD Body Fitter: Signed CRP Collected: 09/10/2017 Status: F Source: [place] 3:06 PM [facility] REPOSITORY TYPE CODE TESTS RESULT OUT OF RANGE REFERENCE UNITS LAB L501.6710 0.0-3.0 mg/L High 12.80 C-REACTIVE PROT Result Comment: C-Reactive Protein (CRP) provides useful information for the diagnosis, therapy and monitoring of inflammatory processes and associated diseases. For the evaluation of Relative Risk for Cardiovascular Disease, a High Sensitivity CRP (HSCRP) should be ordered. Performed By: #### L501.6710 #### [facility] [address] [place], [place], [address] CELIAC DISEASE Collected: 09/10/2017 Status: F Source: [place] PROFILE 3:06 PM [facility] REPOSITORY TYPE CODE TESTS RESULT OUT OF RANGE REFERENCE UNITS LAB L3200.1400 90-386 mg/dL Normal IMMUNO A 234 Result Comment: Performed at: - [facility] [id number] Corporate Treasury Analyst: Eran Lawrence PhD, Phone: [phone] LAB L3884.0177 0-3 U/mL Normal tTG IGA <2 Result Comment: Negative 0 - 3 Weak Positive 4 - 10 Positive >10 Tissue Transglutaminase (tTG) has been identified as the endomysial antigen. Studies have demonstr- ated that endomysial IgA antibodies have over 99% specificity for gluten sensitive enteropathy. LAB L3417.6084 Negative Normal ENDOMYSIAL IGA Negative Performed By: #### L3410.2400 #### [facility] (refer to report for specific site) refer to report for address and phone number MRI ABD WITH AND W/O Observed: 09/09/2017 Status: F Source: [place] CONTRAST 11:15 AM [facility] REPOSITORY [facility] Imaging Services [address] [place] [address] MRI Abd WITH and W/O Contrast MR#: [id number] Acct: [id number] Name: NEIL PHILLIP Rep #: [id number] : 1970 M 47 From: Peter Fischer MD PCP: Richard Cortes MD Status: REG CLI Study: MRI Abd WITH and W/O Contrast Date of Exam: 09/09/17 Exam# [id number] Ordering Dr: Richard Cortes MD STUDY: MRI ABDOMEN WITH CONTRAST REASON FOR EXAM: Male, 47 years old. Liver lesion TECHNIQUE: Standardized fat and water weighted pulse sequences were obtained in all 3 orthogonal planes post contrast administration. 10 ml of Gadavist contrast material was administered intravenously. COMPARISON: CT dated 08/30/2017 FINDINGS: This study is limited by patient motion. The visualized lung bases are unremarkable. The visualized portions of the heart are within normal limits. There is diffuse fatty infiltration of the liver with a 2.2 x 2.0 cm region of focal fatty sparing in segment 5 of the liver adjacent to the gallbladder fossa. This corresponds to the abnormality on the recent CT. The liver is otherwise unremarkable. Normal gallbladder and extrahepatic biliary system. Normal spleen. Normal pancreas. Normal bilateral adrenal glands. Normal right kidney. Normal left kidney. The visualized bowel is unremarkable. Normal abdominal aorta. Normal inferior vena cava. MRI/MRI Abd WITH and W/O Contrast IMPRESSION: Diffuse fatty infiltration of the liver with a 2.2 x 2.0 cm region of focal fatty sparing adjacent to the gallbladder fossa. This accounts for the findings on the recent CT. No additional hepatic lesions. Electronically Signed: Peter Fischer, at 17:26 EDT Tel , Service support , CC: Richard Cortes MD Body Fitter: Signed Observed: 09/08/2017 Status: F Source: [place] MARISCAL (MOLECULAR) 12:47 PM [facility] REPOSITORY Order Date: 09/08/17 Order Info: 0038-2 - C DIFF Comments: stat Cdiff-Molecular Normal Reference Range = Negative C. Diff DNA Negative- No toxigenic C. Diff DNA Detected NAAT METHOD Testing was performed using nucleic acid amplification Performed By: #### M100.6796, M100.637, M600.5000 #### [facility] [address] [place], [address] Observed: 09/08/2017 Status: F Source: [place] ENTERIC PATHOGEN 12:47 PM [facility] PANEL STOOL REPOSITORY Order Date: 09/08/17 Order Info: 0038-2 - C DIFF Comments: stat EP PANEL STOOL CAMPYLOBACTER Not Detected Salmonella Not Detected Shigella sp. Not Detected Shiga Toxin Not Detected Yersinia Not Detected VIBRIO Not Detected Norovirus Not Detected Rotavirus Not Detected Performed By: #### M100.6796, M100.637, M600.5000 #### [facility] [address] [place], [address] Observed: 09/08/2017 Status: F Source: [place] OVA AND PARASITES 12:47 PM [facility] REPOSITORY Order Date: 09/08/17 Order Info: [id number] - OP O + P OVA AND PARASITES EXAM, ROUTINE These results were obtained using wet preparation(s) and trichrome stained smear. This test does not include testing for Crytosporidium parvum, Cyclospora, or Microsporidia. TESTING PERFORMED AT [facility]. ORIGINAL REPORT ON FILE IN LAB CONTAINS ADDITIONAL TEST SITE INFORMATION. Ova/Parasite Exam NO OVA, CYSTS, OR PARASITES FOUND. Performed By: #### M100.6796, M100.637, M600.5000 #### [facility] [address] [place], [address] ED NOTE Observed: 08/31/2017 Status: COMPLETED Source: [place] 12:01 AM [facility] REPOSITORY HNO ID: [id number] Author: Cary UrbinaRn) ARNULFO Arguello Service: Emergency Medicine Author Type: Registered Nurse Type: ED Notes Filed: 08/31/2017 12:01 AM Note Text: urine specimen obtained and sent. ED NOTE Observed: 08/31/2017 Status: COMPLETED Source: [place] 12:01 AM [facility] REPOSITORY HNO ID: [id number] Author: Cary Doherty) ARNULFO Arguello Service: Emergency Medicine Author Type: Registered Nurse Type: ED Notes Filed: 08/31/2017 12:01 AM Note Text: MACROSCOPIC URINALYSIS Collected: 08/30/2017 Status: F Source: [facility] 11:50 PM HEALTH SYSTEM REPOSITORY TYPE CODE TESTS RESULT OUT OF REFERENCE UNITS RANGE LAB LCOLR(LOIN C) Urine Color YELLOW LAB LAPPU(LOIN C) Urine Appearance CLEAR LAB LGLUR(LOIN Negative C) Glucose Urine NEGATIVE LAB LKETO(LOIN Negative C) Ketone Urine NEGATIVE LAB LHGBU(LOIN Negative C) Hemoglobin,Urine NEGATIVE LAB LPRTU(LOIN Negative C) Protein Urine NEGATIVE LAB LNITR(LOIN Negative C) Nitrites Urine NEGATIVE LAB LBILU(LOIN Negative C) Bilirubin Urine NEGATIVE LAB LSPG(LOINC 1.005-1.030 ) Specific [place], Ur 1.010 LAB LPHUR(LOIN 5.0-8.0 C) pH,Urine 5.5 LAB LUROB(LOIN 0.0-1.0 EU/dL C) Urobilinogen,Ur 0.2 LAB LLEUK(LOIN Negative C) Leukocytes NEGATIVE Esterase Performed By: #### LMACU #### [facility] [address] [address] [address] ABDOMEN AND PELVIS Observed: 08/30/2017 Status: F Source: [facility] W/O CONTRAST 11:21 PM HEALTH SYSTEM REPOSITORY Performed at [facility] APPROVED BY: JIM CANTU MD EXAMINATION: CT ABDOMEN AND PELVIS WITHOUT IV CONTRAST CLINICAL HISTORY: Abdominal pain, diarrhea and nausea. Right upper quadrant pain. TECHNIQUE: Non-IV contrast imaging of the abdomen and pelvis was performed using standard technique, scanning from just above the dome of the diaphragm to the symphysis pubis. Unenhanced imaging is plascencia ited for the evaluation of some intra-abdominal and pelvic pathology. MQ: [id number]_3 Contrast: IV: None : ml of CT Radiation dose: Integrated Dose-length product (DLP) for this visit = 1200 mGy*cm. CT Dose Reduction Employed: [employer] COMPARISON: None. RESULT: Abdomen / Pelvis: Liver: Hepatic steatosis. 2.3 x 2.0 cm lesion in segment 5 along the superior margin of the gallbladder fossa, that is hyperattenuating relative to the fatty infiltration of the liver. Biliary: The gallbladder is unremarkable. Spleen: No splenomegaly. Pancreas: Unremarkable. Adrenals: No mass. Kidneys: No calculus, hydronephrosis or finding to suggest a cyst or mass in the unenhanced kidney. GI Tract: No bowel dilation. Normal appendix. Lymph Nodes: No lymphadenopathy. Mesentery/peritoneum: No ascites. Retroperitoneum: No mass. Vasculature: No abdominal aortic or iliac artery aneurysm. Pelvis: No mass or ascites. Bones/Soft Tissues: Chronic L5 pars defects bilaterally with grade 1 anterolisthesis L5/S1. Lower thorax: 10 x 8 mm right lower lobe lung nodule. IMPRESSION: No evidence of acute intra-abdominal or pelvic process There is hepatic steatosis with relative hyperattenuating 2.3 cm focus along the superior margin of the gallbladder fossa, could possibly reflect focal region of fatty sparing given the location as oppo sed to a true hepatic lesion. This could be confirmed with nonemergent hepatic MRI. 10 x 8 mm right lower lobe lung nodule, stable from chest CT 03/22/2015 Chronic L5 pars defects bilaterally with grade 1 anterolisthesis L5/S1 ED PROV NOTE Observed: 08/30/2017 Status: COMPLETED Source: [place] 10:51 PM [facility] REPOSITORY O ID: [id number] Author: Adela Wooten MD Service: Emergency Medicine Author Type: Physician Type: ED Provider Notes Filed: 08/31/2017 1:14 AM Note Text: ED Provider Note Patient Name: Neil Phillip SERVICE DATE: 08/30/17 History Patient presents with: Abdominal Pain Diarrhea HPI Patient presents with nausea, diarrhea and abdominal month. He states he has a longstanding history of diarrhea after every time he eats. For the last month feels that it has been getting worse and associated with more abdominal cramping. Over the last several days, he has had about 10-12 episodes of watery diarrhea per day associated with nausea but no vomiting. No blood in diarrhea, no recent abx/travel/sick contacts. Hx of DM but BG has been in 120s, recent Hgb A1C was 7. Has history of EGD showing hiatal hernia but no previous colonoscopy. Saw PCP yesterday who diagnosed with IBS and gave bentyl with limited relief. PAST MEDICAL HISTORY Diagnosis Date - Asthma - Diabetes (HCC) - Psychiatric disorder - Reflux esophagitis - Sarcoidosis (HCC) PAST SURGICAL HISTORY Procedure Laterality Date - KNEE ARTHROSCOPY Left - ORTHOPEDICS SURGERY HX - PAST SURGICAL HISTORY OF 1996 lung biopsy - PAST SURGICAL HISTORY OF 2001 sinus surgery FAMILY HISTORY Problem Relation Age of Onset - Hypertension Maternal Grandmother - Hypertension Maternal Grandfather - Hypertension Paternal Grandmother - Hypertension Paternal Grandfather - Hypertension Sister - Psychiatry Maternal Grandmother Social History Social History Main Topics - Smoking status: Never Smoker - Smokeless tobacco: Current User Types: Snuff Comment: since age 15 - Alcohol use No - Drug use: No - Sexual activity: Not Asked ALLERGIES Allergen Reactions - Aspirin Other: See Comments Bronchial spasms - Nsaids (Non-Steroid* Other: See Comments Bronchial spasms Review of Systems Constitutional: Negative. Negative for chills and fever. HENT: Negative. Negative for congestion and sore throat. Eyes: Negative. Negative for visual disturbance. Respiratory: Negative. Negative for cough, shortness of breath and wheezing. Cardiovascular: Negative. Negative for chest pain. Gastrointestinal: Positive for abdominal distention, abdominal pain, diarrhea and nausea. Negative for anal bleeding, blood in stool, constipation, rectal pain and vomiting. Endocrine: Negative. Genitourinary: Negative. Negative for difficulty urinating. Musculoskeletal: Negative. Negative for arthralgias and myalgias. Skin: Negative. Negative for color change and rash. Allergic/Immunologic: Negative. Neurological: Negative. Negative for headaches. Hematological: Negative. Does not bruise/bleed easily. Psychiatric/Behavioral: Negative. Negative for confusion. All other systems reviewed and are negative. Physical Exam BP 146/91 Pulse 98 Temp (Src) 97.7 (Temporal Artery) Resp 20 Ht 6' 1 (1.85m) Wt 257 lb (116.6kg) SpO2 97% BMI 33.91 kg/(m2). Physical Exam Constitutional: He is oriented to person, place, and time. He appears well-developed and well-nourished. HENT: Head: Normocephalic and atraumatic. Eyes: EOM are normal. Pupils are equal, round, and reactive to light. Neck: Normal range of motion. Neck supple. Cardiovascular: Normal rate, regular rhythm, normal heart sounds and intact distal pulses. Exam reveals no gallop and no friction rub. No murmur heard. Pulmonary/Chest: Effort normal and breath sounds normal. No respiratory distress. He has no wheezes. He has no rales. Abdominal: Soft. Bowel sounds are normal. He exhibits distension. There is tenderness. There is no rebound and no guarding. Diffuse TTP all quadrants, no g/r Musculoskeletal: Normal range of motion. He exhibits no edema or tenderness. Neurological: He is alert and oriented to person, place, and time. No cranial nerve deficit. Skin: Skin is warm and dry. No rash noted. No erythema. Psychiatric: He has a normal mood and affect. His behavior is normal. Judgment and thought content normal. Diagnostic Testing ED Labs Ordered and Reviewed COMPREHENSIVE METABOLIC PANEL (AK,AV,EU,FV,HL,JOHN,MM,SP) - Abnormal; Notable for the following: Result Value Ref Range Glucose 152 (*) 70 - 99 mg/dL All other components within normal limits CBC + AUTO DIFF (AK,AV,EU,FV,HL,JOHN,MM,SP) - Abnormal; Notable for the following: Hematocrit 41.0 (*) 42.0 - 52.0 % All other components within normal limits LIPASE BLOOD (AK,AV,EU,FV,HL,JOHN,MM,SP) URINALYSIS (AV,EU,FV,HL,JOHN,MM,SP) MDRD GFR Procedures Medical Decision Making / ED Course ED Course CBC, CMP, lipase, urinalysis unremarkable. CT abdomen and pelvis shows nothing acute, incidental findings of a lung nodule and a liver nodule found to patient was given copy of CT to follow up with PCP. Have also given him a GI referral. Sounds like this is acute exacerbation of a chronic issue but he may need a colonoscopy in the future. He has Bentyl at home, will give him prescription for Zofran. Encounter Diagnosis ICD-10-CM 1. Generalized abdominal pain R10.84 2. Diarrhea, unspecified type R19.7 Plan The Patient was DISCHARGED: Counseled patient and spouse regarding lab results AND radiology results AND suspected diagnosis AND need for follow-up. Discharged home with verbal and written instructions. They were instructed to return as needed for persistent or worsening symptoms or any new concerns. Condition at time of disposition: improved and stable SIGNATURE: MD Adela Damon MD 08/31/17 0114 HEMOGRAM/DIFF Collected: 08/30/2017 Status: F Source: [facility] 10:50 PM HEALTH SYSTEM REPOSITORY TYPE CODE TESTS RESULT OUT OF REFERENCE UNITS RANGE LAB LWBC(LOINC 4.8-10.8 thou/cmm ) WBC 7.7 LAB LRBC(LOINC 4.60-6.20 mil/cmm ) RBC 5.02 LAB LHGB(LOINC 14.0-18.0 g/dL ) Hgb 14.2 LAB LHCT(LOINC 42.0-52.0 % ) Low Hct 41.0 LAB LMCV(LOINC 80.0-94.0 fl ) MCV 81.7 LAB LMCH(LOINC 27.0-31.0 pg ) MCH 28.3 LAB LMCHC(LOIN 32.0-36.0 % C) MCHC 34.6 LAB LRDW(LOINC 11.5-15.9 % ) RDW 13.1 LAB LPLT(LOINC 150-400 thou/cmm ) Platelet 274 LAB LMPV(LOINC 7.1-10.5 fl ) MPV 9.2 LAB LSEGT(LOIN % C) Seg Neutrophil 61.1 LAB LLYMP(LOIN % C) Lymphocyte 28.4 LAB LMNO(LOINC % ) Monocyte 8.4 LAB CORAL(LOINC % ) Eosinophil 1.8 LAB LBASO(LOIN % C) Basophil 0.3 LAB LSEGN(LOIN 3.00-5.67 thou/cmm C) Abs. Neut 4.70 LAB LLYMN(LOIN 1.50-3.65 thou/cmm C) Abs. Lymph 2.19 LAB LMONN(LOIN 0.20-1.00 thou/cmm C) Abs. [place] 0.65 LAB LEOSN(LOIN 0.00-0.41 thou/cmm C) Abs. Eosin 0.14 LAB LBASN(LOIN 0.00-0.08 thou/cmm C) Abs. Baso 0.02 Performed By: #### LCBCD #### [facility] [address] [address] COMPREHENSIVE PANEL Collected: 08/30/2017 Status: F Source: [facility] 10:50 PM HEALTH SYSTEM REPOSITORY TYPE CODE TESTS RESULT OUT OF REFERENCE UNITS RANGE LAB BRICK CARRIER(LOINC) 136-145 mEq/L Sodium Blood 137 LAB LK(LOINC) 3.5-5.1 mEq/L Potassium Blood 3.9 LAB LCL(LOINC) 98-107 mEq/L Chloride Blood 102 LAB LCO2(LOINC 21-32 mEq/L ) CO2 Blood 23 LAB LGLU(LOINC 70-99 mg/dL ) Glucose High Blood 152 LAB LBUN(LOINC 7-25 mg/dL ) BUN Blood 17 LAB LCREA(LOIN 0.67-1.17 mg/dL C) Creatinine Blood 1.13 LAB LCA(LOINC) 8.5-10.1 mg/dL Calcium Blood 9.2 LAB LALB(LOINC 3.4-5.0 g/dL ) Albumin Blood 4.0 LAB LTP(LOINC) 6.4-8.2 g/dL Total Protein 7.5 LAB LAST(LOINC 15-37 U/L ) AST-SGOT Blood 35 LAB LALT(LOINC 14-63 U/L ) ALT-SGPT Blood 63 LAB LALKP(LOIN 46-116 U/L C) Alk Phosphatase 94 LAB LBILT(LOIN 0.2-1.0 mg/dL C) Total Bilirubin 0.3 LAB LANGP(LOIN 8-20 C) Anion Gap 16 LAB LBNCR(LOIN 10-20 C) BUN/Creatinine 15 Ratio Performed By: #### LP14 #### [facility] [address] [id number] LIPASE BLOOD Collected: 08/30/2017 Status: F Source: [facility] 10:50 PM HEALTH SYSTEM REPOSITORY TYPE CODE TESTS RESULT OUT OF REFERENCE UNITS RANGE LAB LLIP(LOINC) 73-393 U/L Lipase Blood 114 Performed By: #### LLIP #### [facility] [address] [address] MDRD EGFR Collected: 08/30/2017 Status: F Source: [facility] 10:50 PM HEALTH SYSTEM REPOSITORY TYPE CODE TESTS RESULT OUT OF RANGE REFERENCE UNITS LAB LGFRF(LOINC >60mL/min/1.73m ) 2 eGFR >60 Result Comment: If the patient is , multiply the result by 1.210. Performed By: #### LGFR #### [place] [address] ED NOTE Observed: 08/30/2017 Status: COMPLETED Source: [place] 10:39 PM [facility] REPOS[facility] HNO ID: [id number] Author: Janae (Rn) ARNULFO Rodriguez Service: Emergency Medicine Author Type: Registered Nurse Type: ED Notes Filed: 08/30/2017 10:40 PM Note Text: Pt alert and oriented. resps easy. Pt c/o nausea and diarrhea for past month. Pt was started on bentyl yesterday at PCP. Pt c/o abdominal cramping and RUQ pain. ALLERGIES ALLERGIES DATE TYPE / CODE NAME / CODE REACTION SEVERITY SOURCE 03/04/2018 Drug NSAIDS Shortness of Unknown [facility] Allergy/4160 ([facility] breath [facility] [address]48(SNOMED l Repository CT) Anti-Inflamma /[id number](R XNORM) ENCOUNTERS ENCOUNTERS ADMIT/DISCHARGE ACCOUNT NUMBER ADMITTING ENCOUNTER LOCATION SOURCE CLASS 05/07/[id number] [facility] ding:LABSPEC Repository 04/27/2018/04/27/20 [id number] Ambulatory BBuilding:RA [place] [address] [place] [address] Repository 03/04/2018/03/05/20 [id number] Emergency [address] ding:ED Repository 01/01/2018/01/02/20 [id number] Ambulatory [address] ding:PT Repository 12/12/[id number] [facility] ding:MRI Repository 11/27/[id number] [facility] ding:MTRAD Repository 09/10/2017 [id number] General acute hospital ding:MFPLAB Repository 09/09/2017 [id number] General acute hospital ding:MRI Repository 09/08/2017 [id number] General acute hospital ding:LABSPEC Repository PAYERS PAYERS ENCOUNTER GUARANTOR PAYER SUBSCRIBER SOURCE 05/07/2018 NEIL Palmer Primary NEIL Guerrero [id number] E Insurance:MEDICARE BOONEDOB: [facility] [address] PART A [facility] [id number] Number: Repository [id number]: 330 [id number] () Date:2018-05-07 05/07/2018 Secondary NOT GIVENUNK [place] Insurance:SELF PAY [facility] Number: Effective Repository Date:2018-05-07 04/27/2018 NEIL Palmer Primary NEIL Palmer [facility] BOONEDOB: Insurance:MEDICARE BOONEDOB: [facility] E PART B IN[employer] [id number] [address] Number: [address] [place], [place] [id number] [place], [place] [address]Arw: ([phone]) Date:2018-04-15 [id number]: () [id number] Name:[facility] ()Tel: ([phone]) Administrators LLCPO [phone] () [address] [place] [address]RD: 03/04/2018 NEIL Palmer Primary NEIL Guerrero [id number] E Insurance:MEDICARE BOONEDOB: [facility] RDLOT PART A [facility] [id number] Number: Repository [address]Mkm: 330 [id number] [phone] () Date:2018-03-04 03/04/2018 Secondary NOT GIVENUNK [place] Insurance:SELF PAY [facility] Number: Effective Repository Date:2018-03-04 2018 Neil Palmer Primary Neil Guerrero [id number] Insurance:MEDICARE BooneDOB: [facility] PART A [id number] [place] Number: Repository [id number]: 330 [id number] [phone] (HP) Date:2008-02-24 2018 Secondary NOT GIVENUNK [place] Insurance:SELF PAY [facility] Number: Effective Repository Date:2017-12-17 12/12/2017 Neil Palmer Primary Neil Palmer [place] [id number] E Insurance:MEDICARE BooneDOB: [facility] [id number] [facility] [place] Number: Repository [id number]: 330 [id number] [phone] (HP) Date:2017-12-08 12/12/2017 Secondary NOT GIVENUNK [place] Insurance:SELF PAY [facility] Number: Effective Repository Date:2017-12-08 11/27/2017 Neil Palmer Primary Neil Segundooster [id number] Insurance:MEDICARE BooneDOB: [facility] [id number] [place] Number: Repository [address]Vdf: 330 [id number] [phone] () Date:2017-11-27 11/27/2017 Secondary NOT GIVENUNK [place] Insurance:SELF PAY [facility] Number: Effective Repository Date:2017-11-27 09/10/2017 Neil Palmer Primary Neil Segundooster [id number] Insurance:MEDICARE BooneDOB: [facility] [id number] [place] Number: Repository [id number]: 330 [id number] [phone] (HP) Date:2017-09-10 09/10/2017 Secondary NOT GIVENUNK [place] Insurance:SELF PAY [facility] Number: Effective Repository Date:2017-09-10 09/09/2017 Neil Palmer Primary Neil Segundooster [id number] E Insurance:MEDICARE BooneDOB: [facility] PART A [facility] [id number] [place] Number: Repository [address]Key: 330 [id number] [phone] () Date:2017-09-04 09/09/2017 Secondary NOT GIVENUNK [place] Insurance:SELF PAY [facility] Number: Effective Repository Date:2017-09-04 09/08/2017 Neil Palmer Primary Neil Guerrero [id number] Insurance:MEDICARE [place] [id number] Number: Repository [id number]: [phone] () Date:2017-09-08 09/08/2017 Secondary NOT GIVENUNK [place] Insurance:SELF PAY [facility] Number: Effective Repository Date:2017-09-08
== END ==
LOC: LABSPEC 05-08 08:49
PROVIDERS: Family Provider Family Medicine; PCP Family Medicine; Referring Provider Internal Medicine Gastroenterology; Visit Provider Internal Medicine Gastroenterology
DX: K29.70 Gastritis, unspecified, without bleeding (principal); R89.7 Abnormal histological findings in specimens from other organs, systems and tissues
CPT/HCPCS: 88305; 88342

== ENCOUNTER → 2024-05-05 | Outpatient (CLI) | payer MEDICARE, SELFPAY ==
[2024-05-10 09:22] LABS: SJOGREN'S Anti-SS-A test < 0.2 AI (0.0-0.9); SJOGREN'S Anti-SS-B test < 0.2 AI (0.0-0.9)
== END | disposition home or self-care (01) ==
PROVIDERS: PCP Family Medicine; Referring Provider Otolaryngology Otolaryngology/Facial Plastic Surgery; Visit Provider Otolaryngology Otolaryngology/Facial Plastic Surgery
DX: M35.00 Sjogren syndrome, unspecified (principal)
CPT/HCPCS: 36415; 86235

== ENCOUNTER → 2024-06-02 | Outpatient (CLI) | payer MEDICARE, SELFPAY ==
--- NOTE | 2024-06-02 13:29 | CT_ITS ---
STUDY: CT SOFT TISSUE NECK WITH CONTRAST REASON FOR EXAM: Male, 54 years old. BILAT PAROTID ENLARGEMENT AND RIGHT EAR PAIN RADIATION DOSAGE (If Supplied By Facility): CTDIvol = ( 19.39 ) mGy, DLP = ( 649.20 ) mGycm TECHNIQUE: The patient was scanned in a multi-detector CT scanner. High resolution transaxial imaging was performed following intravenous administration of IV 100mL Isovue-300. Sagittal and coronal images were reconstructed. Individualized dose optimization techniques were used for this CT. COMPARISON: None. FINDINGS: Diffuse fatty appearance of both parotid glands. No mass lesion is seen. Normal bilateral foam machine operator spaces. Normal bilateral parapharyngeal spaces. Normal bilateral carotid spaces. Normal bilateral sublingual and submandibular glands and spaces. Normal visualized nasopharynx. Normal retropharyngeal space. Normal perivertebral space. Normal visualized bilateral faucial tonsils. The visualized tongue, tongue base and oropharynx are normal. There are minimally enlarged lymph nodes of the neck, with preservation of normal aracelis architecture, consistent with a reactive lymph hyperplasia. There is no demonstrated solid or cystic mass lesion. There is no abnormal contrast enhancement. Normal epiglottis, bilateral vallecula and hypopharynx. The pre-epiglottic and paraglottic adipose spaces are normal. Normal visualized bilateral piriform sinuses, aryepiglottic folds, vocal cords, and arytenoid-cricoid articulations. Normal subglottic trachea. Normal bilateral lobes of the thyroid gland. Normal visualized pulmonary apices. Normal visualized paranasal sinuses. Straightening of the normal cervical lordosis. Spondylosis at the C5-C6 level. CT/Soft Tissue Neck WITH Contrast IMPRESSION: Diffuse fatty replacement of the parotid glands bilaterally. No mass lesion is seen. Electronically Signed: Kei Darden MD at 15:05 EST ,
[2024-06-02 13:54] LABS: CREATININE FINGERSTICK < 1.0 mg/dL (0.70-1.30); EGFR FINGERSTICK > 60.0000 mL/min (>60)
== END | disposition home or self-care (01) ==
LOC: CT 13:25
PROVIDERS: PCP Nurse Practitioner Family; Referring Provider Otolaryngology Otolaryngology/Facial Plastic Surgery; Visit Provider Otolaryngology Otolaryngology/Facial Plastic Surgery
DX: Z01.812 Encounter for preprocedural laboratory examination (principal); K11.20 Sialoadenitis, unspecified
CPT/HCPCS: 70491; Q9967